=== PATIENT | female | born 1980 | race Caucasian/White ===

== ENCOUNTER → 2016-05-19 | Outpatient (CLI) | payer MEDICAID ==
[~2016-05-19] MED LIST: ALBUTEROL2 PUFFS/17 IN; AMOXIL500 MG PO; AQUATAB C 60 MG1 TER PO; AUGMENTIN 875-1 EACH PO; BACTROBAN2% TP; CIPRO 500MG TA500 MG PO; IBUPROFEN200 MG PO; KEFLEX 500MG.500 MG PO; LORTAB 5/500 501 TAB PO; MEDROL 4MG. DOSE4 MG PO; MOTRIN800 MG PO; OMEPRAZOLE20 MG PO; PHENERGAN 25MG.25 M1 PO; TESSALON PERLE100 M1 PO; TESSALON PERLE100 MG PO; ULTRAM50 MG PO
[2016-05-19 08:03] LABS: FASTING URINE GLUCOSE NEGATIVE
[2016-05-19 09:37] LABS: 1 HR URINE GLUCOSE NEGATIVE mg/ml
[2016-05-19 10:22] LABS: 2 HR URINE GLUCOSE NEGATIVE mg/ml
[2016-05-19 11:40] LABS: 3 HR URINE GLUCOSE NEGATIVE mg/ml
[2016-05-19 12:31] LABS: 4 HR URINE GLUCOSE NEGATIVE
[2016-05-19 12:36] LABS: 4 HR GLUCOSE 82 mg/dL
[2016-05-20 16:36] LABS: C-Peptide 3.4 ng/mL (1.1-4.4); Insulin 14.5 uIU/mL (2.6-24.9)
== END ==
LOC: LAB 07:52
PROVIDERS: Internal Medicine Adolescent Medicine
DX: E16.2 Hypoglycemia, unspecified (principal)